=== PATIENT | female | born 1970 | race Asian ===

== ENCOUNTER → 2016-04-29 | Outpatient (CLI) | payer OTHER ==
--- NOTE | 2016-04-29 11:52 | DX ---
Thoracic Spine Series. 2 views History: Left mid back pain. Findings: Vertebral body heights are well maintained. No fractures are seen. There are no subluxation s. Intervertebral disk spaces are normal. Paravertebral soft tissues demonstrate no significant abnor malities. Impression: Normal thoracic spine series.
== END ==
LOC: CIMAGING 10:50
PROVIDERS: ATTEND Family Medicine
DX: M54.6 Pain in thoracic spine (principal)
CPT/HCPCS: 72070-PO